=== PATIENT | female | born 1955 | race Caucasian/White ===

== ENCOUNTER → 2024-01-23 12:35 | Outpatient (REF) | payer BC, SELFPAY | LOC: MRI 3T 12:35 | PROVIDERS: ATTENDING PHYSICIAN Otolaryngology; FAMILY PHYSICIAN Family Medicine | DX: H90.3 Sensorineural hearing loss, bilateral (principal) | CPT/HCPCS: 70553; A9575 ==

== ENCOUNTER 2024-08-22 09:53 | Outpatient (RCR) | payer MEDICARE, OTHER, SELFPAY | END 2024-08-22 23:59 | disposition home or self-care (01) | LOC: RPT 09:53 | PROVIDERS: ATTENDING PHYSICIAN Physician Assistant Surgical; FAMILY PHYSICIAN Family Medicine | DX: M25.551 Pain in right hip (principal); Z73.6 Limitation of activities due to disability; R26.89 Other abnormalities of gait and mobility; M62.81 Muscle weakness (generalized); G89.29 Other chronic pain; M54.42 Lumbago with sciatica, left side | CPT/HCPCS: 97010; 97110; 97162; 97535 ==

== ENCOUNTER 2024-09-08 09:56 | Outpatient (RCR) | payer MEDICARE, OTHER, SELFPAY | END 2024-09-08 23:59 | disposition home or self-care (01) | LOC: RPT 09:56 | PROVIDERS: ATTENDING PHYSICIAN Physician Assistant Surgical; FAMILY PHYSICIAN Family Medicine | DX: M25.551 Pain in right hip (principal); M54.41 Lumbago with sciatica, right side; Z73.6 Limitation of activities due to disability; G89.29 Other chronic pain; Z98.890 Other specified postprocedural states | CPT/HCPCS: 97010; 97110; 97535 ==

== ENCOUNTER 2024-11-25 09:57 | Outpatient (RCR) | payer MEDICARE, OTHER, SELFPAY | END 2024-11-25 23:59 | disposition home or self-care (01) | LOC: RPT 09:57 | PROVIDERS: ATTENDING PHYSICIAN Physician Assistant Surgical; FAMILY PHYSICIAN Family Medicine | DX: M25.551 Pain in right hip (principal); M54.42 Lumbago with sciatica, left side | CPT/HCPCS: 97010; 97110; 97164; 97530; 97535 ==

== ENCOUNTER 2024-12-26 09:59 | Outpatient (RCR) | payer MEDICARE, OTHER, SELFPAY | END 2024-12-26 13:29 | disposition home or self-care (01) | LOC: RPT 09:59 | PROVIDERS: ATTENDING PHYSICIAN Physician Assistant Surgical; FAMILY PHYSICIAN Family Medicine | DX: M25.551 Pain in right hip (principal); M54.42 Lumbago with sciatica, left side; M51.362 Other intervertebral disc degeneration, lumbar region with discogenic back pain and lower extremity pain; Z73.6 Limitation of activities due to disability; R26.89 Other abnormalities of gait and mobility | CPT/HCPCS: 97010; 97110; 97530 ==

== ENCOUNTER 2025-05-21 09:21 | Outpatient (RCR) | payer MEDICARE, OTHER, SELFPAY | END 2025-05-21 23:59 | disposition home or self-care (01) | LOC: RPT 09:21 | PROVIDERS: ATTENDING PHYSICIAN Anesthesiology; FAMILY PHYSICIAN Student in an Organized Health Care Education/Training Program | DX: M54.16 Radiculopathy, lumbar region (principal); M79.604 Pain in right leg; Z73.6 Limitation of activities due to disability; M62.81 Muscle weakness (generalized) | CPT/HCPCS: 97110; 97162; 97535 ==

== ENCOUNTER 2025-06-25 09:00 | Outpatient (RCR) | payer MEDICARE, OTHER, SELFPAY | END 2025-06-25 23:59 | disposition home or self-care (01) | LOC: RPT 09:00 | PROVIDERS: ATTENDING PHYSICIAN Anesthesiology; FAMILY PHYSICIAN Student in an Organized Health Care Education/Training Program | DX: M54.16 Radiculopathy, lumbar region (principal); M79.604 Pain in right leg; Z73.6 Limitation of activities due to disability; M62.81 Muscle weakness (generalized) | CPT/HCPCS: 97110; 97530 ==

== ENCOUNTER 2025-07-21 15:51 | Outpatient (RCR) | payer MEDICARE, OTHER, SELFPAY | END 2025-07-21 23:59 | disposition home or self-care (01) | LOC: RPT 15:51 | PROVIDERS: ATTENDING PHYSICIAN Anesthesiology; FAMILY PHYSICIAN Student in an Organized Health Care Education/Training Program | DX: M54.16 Radiculopathy, lumbar region (principal); M79.604 Pain in right leg; Z73.6 Limitation of activities due to disability; M62.81 Muscle weakness (generalized) | CPT/HCPCS: 97110; 97530; 97535 ==

== ENCOUNTER 2025-09-24 14:01 | Outpatient (RCR) | payer MEDICARE, OTHER, SELFPAY | END 2025-09-24 23:59 | disposition home or self-care (01) | LOC: RPT 14:01 | PROVIDERS: ATTENDING PHYSICIAN Anesthesiology; FAMILY PHYSICIAN Student in an Organized Health Care Education/Training Program | DX: M54.16 Radiculopathy, lumbar region (principal); Z73.6 Limitation of activities due to disability; R26.89 Other abnormalities of gait and mobility | CPT/HCPCS: 97110; 97162; 97530; 97535 ==

== ENCOUNTER 2025-10-20 08:35 | Outpatient (RCR) | payer MEDICARE, OTHER, SELFPAY | END 2025-10-20 23:59 | disposition home or self-care (01) | LOC: RPT 08:35 | PROVIDERS: ATTENDING PHYSICIAN Anesthesiology; FAMILY PHYSICIAN Student in an Organized Health Care Education/Training Program | DX: M54.16 Radiculopathy, lumbar region (principal); Z73.6 Limitation of activities due to disability; R26.89 Other abnormalities of gait and mobility | CPT/HCPCS: 97110; 97530 ==

== ENCOUNTER 2025-11-23 07:24 | Outpatient (RCR) | payer MEDICARE, OTHER, SELFPAY | END 2025-11-23 23:59 | disposition home or self-care (01) | LOC: RPT 07:24 | PROVIDERS: ATTENDING PHYSICIAN Anesthesiology; FAMILY PHYSICIAN Student in an Organized Health Care Education/Training Program | DX: M54.16 Radiculopathy, lumbar region (principal); Z73.6 Limitation of activities due to disability; R26.89 Other abnormalities of gait and mobility | CPT/HCPCS: 97110; 97112; 97530 ==